=== PATIENT | female | born 1955 | race Caucasian/White ===

== ENCOUNTER 2018-05-31 18:39 | Emergency (ER) | payer BC ==
[~2018-05-31] VITALS: Ht 172.7 cm; Wt 79.5 kg
[2018-05-31 18:42] VITALS: Ht 172.7 cm; Wt 79.5 kg
[2018-05-31] MEDS ORDERED: NORCO 10-325 TA1 TAB PO (19:15)
[2018-05-31 20:02] VITALS: BP 127/88
[2018-06-01] MEDS ORDERED: IBUPROFEN600 MG PO (12:08)
[2018-06-02 06:25] VITALS: Ht 172.7 cm; Wt 79.5 kg
== END 2018-05-31 20:02 | disposition home or self-care (01) ==
LOC: D.ER 18:39
DX: S82.841A Displaced bimalleolar fracture of right lower leg, initial encounter for closed fracture (principal); W11.XXXA Fall on and from ladder, initial encounter; Y93.H2 Activity, gardening and landscaping; Y92.017 Garden or yard in single-family (private) house as the place of occurrence of the external cause

== ENCOUNTER 2018-06-02 05:28 | Day surgery (SDC) | payer BC ==
[2018-06-01 12:52] LABS: BASOPHILS 0.3 % (0-2); EOSINOPHILS 0.8 % (0-7); HEMATOCRIT 39.7 % (36.0-48.0); HEMOGLOBIN 13.3 g/dL (12-16); IMMATURE GRANULOCYTES 0.2 % (0-5); LYMPHOCYTES 15.1 % (15-50); MCH 29.4 pg (26.0-34.0); MCHC 33.5 g/dL (31.0-37.0); MCV 87.8 fL (80.0-100.0); MEAN PLATELET VOLUME 10.8 fL (7.4-10.4); MONOCYTES 7.7 % (2-11); NEUTROPHILS 75.9 % (40-80); PLATELET COUNT 210 10x3/uL (130-400); RBC 4.52 10x6/uL (4.00-5.40); RDW 12.7 % (11.5-14.5); WBC 10.1 10x3/uL (4.8-10.8)
[2018-06-01 13:03] LABS: CALC OSMOLALITY 278 mosm/kg (275-300); CALCIUM 8.6 mg/dL (8.5-10.1); CARBON DIOXIDE 27.4 mmol/L (21.0-32.0); CHLORIDE - SERUM 104 mmol/L (98-107); CREATININE - SERUM 0.7 mg/dL (0.6-1.3); GLUCOSE 132 mg/dL (74-106); POTASSIUM - SERUM 3.6 mmol/L (3.5-5.1); SODIUM 140 mmol/L (136-145); UREA NITROGEN 6 mg/dL (7-18); eGFR NON AFRICAN AMERICAN 90 mL/min (90-120)
[~2018-06-02] VITALS: Ht 172.7 cm; Wt 79.4 kg
[~2018-06-02 05:28] MED LIST: IBUPROFEN600 MG PO; NORCO 10-325 TA1 TAB PO
[2018-06-02 06:25] VITALS: BP 119/73; Ht 172.7 cm; Wt 79.4 kg
== END 2018-06-02 11:09 | disposition home or self-care (01) ==
LOC: D.OPS 05:28 → D.PAN 07:30 → D.OPS 07:30
PROVIDERS: Orthopaedic Surgery
DX: S82.841A Displaced bimalleolar fracture of right lower leg, initial encounter for closed fracture (principal); X58.XXXA Exposure to other specified factors, initial encounter; Z01.812 Encounter for preprocedural laboratory examination

== ENCOUNTER 2019-04-18 08:00 | Outpatient (CLI) | payer MEDICAID ==
[2018-06-02 06:25] VITALS: BMI 26.6
== END 2019-04-18 23:59 | disposition home or self-care (01) ==
LOC: D.MAMMO 08:00
PROVIDERS: ATTEND Nurse Practitioner
DX: Z12.31 Encounter for screening mammogram for malignant neoplasm of breast (principal)

== ENCOUNTER 2020-05-29 16:00 | Outpatient (CLI) | payer MEDICAID ==
[2018-06-02 06:25] VITALS: BMI 26.6
== END 2020-05-29 23:59 | disposition home or self-care (01) ==
LOC: D.MAMMO 16:00
PROVIDERS: ATTEND Nurse Practitioner
DX: Z12.31 Encounter for screening mammogram for malignant neoplasm of breast (principal)